=== PATIENT | female | born 1935 | race Caucasian/White ===

== ENCOUNTER 2019-04-06 09:29 | Day surgery (SDC) | payer MEDICARE, BC ==
[~2019-04-06] VITALS: Ht 162.6 cm; Wt 70.4 kg
[~2019-04-06 09:29] MED LIST: ASPI-496 PO; CARV12.543 PO; CHOL2000 PO; ESTR0.5T PO; FURO20TA3 PO; ISOS30TA PO; LEVO112T4 PO; LORA-446 PO; LOVA20TA2 PO; METF500T17 PO; NITR0.3T SL; POTA10TA17 PO
[2019-04-06] MEDS ORDERED: SIMV40TA3 PO (10:16)
[2019-04-06] MEDS ORDERED: LOSA100T14 PO (10:18)
[2019-04-06] MEDS ORDERED: MV-M1TAB3 PO (10:25)
[2019-04-06 10:27] VITALS: BP 185/83
[2019-04-06] MEDS ORDERED: FENTANYL PF 100 MCG/2ML ONE (11:33)
[2019-04-06] MEDS ORDERED: LIDOCAINE 1%, 20ML ONE (11:33)
[2019-04-06] MEDS ORDERED: HEPARIN 1,000 UNITS/ML, 10ML ONE (11:33)
[2019-04-06] MEDS ORDERED: VERAPAMIL 2.5 MG/ML, 2ML ONE (11:33)
[2019-04-06] MEDS ORDERED: NITROGLYCERIN 5 MG/ML, 10ML ONE (11:33)
[2019-04-06] MEDS ORDERED: MIDAZOLAM 1 MG/ML, 5ML ONE (11:33)
[2019-04-06] MEDS ORDERED: hydrALAzine 20 MG/ML, 1ML ONE (14:09)
[2019-04-06] MEDS ORDERED: hydrALAzine 20 MG/ML, 1ML IV ONE (14:30)
== END 2019-04-06 14:59 | disposition home or self-care (01) ==
LOC: CACL 09:29
PROVIDERS: ATTEND Internal Medicine Cardiovascular Disease
DX: I25.10 Atherosclerotic heart disease of native coronary artery without angina pectoris (principal); F41.9 Anxiety disorder, unspecified; J44.9 Chronic obstructive pulmonary disease, unspecified; E03.9 Hypothyroidism, unspecified; K21.9 Gastro-esophageal reflux disease without esophagitis; I10 Essential (primary) hypertension; Z86.73 Personal history of transient ischemic attack (TIA), and cerebral infarction without residual deficits
CPT/HCPCS: 93458; 99156; C1769; C1894; J0360; J1644; J2250; J3010; Q9967